=== PATIENT | male | born 1945 | race Caucasian/White ===

== ENCOUNTER 2019-03-05 06:12 | Day surgery (SDC) | payer OTHER ==
[~2019-03-05] VITALS: Ht 170.2 cm; Wt 105.7 kg
[2019-03-05 06:59] LABS: BASOPHILS 0.2 % (0-2); EOSINOPHILS 2.7 % (0-7); HEMATOCRIT 36.1 % (42.0-54.0); HEMOGLOBIN 11.9 g/dL (13.5-17.5); IMMATURE GRANULOCYTES 1.1 % (0-5); LYMPHOCYTES 20.4 % (15-50); MCH 29.2 pg (26.0-34.0); MCV 88.5 fL (80.0-100.0); MEAN PLATELET VOLUME 9.5 fL (7.4-10.4); NEUTROPHILS 63.6 % (40-80); PLATELET COUNT 284 10x3/uL (130-400); RBC 4.08 10x6/uL (4.20-6.10); WBC 11.3 10x3/uL (4.8-10.8)
[2019-03-05] MEDS ORDERED: ASPIRIN81 MG PO (07:02)
[2019-03-05] MEDS ORDERED: XOPENEX HFA15 GM INH (07:02)
[2019-03-05] MEDS ORDERED: FUROSEMIDE40 MG PO (07:03)
[2019-03-05] MEDS ORDERED: LISINOPRIL10 MG PO (07:04)
[2019-03-05] MEDS ORDERED: POTASSIUM CHLO20 MEQ PO (07:04)
[2019-03-05 07:11] VITALS: BP 133/64; Ht 170.2 cm; Wt 105.7 kg
--- NOTE | 2019-03-05 07:38 | NUR ---
PT HAS WHEEZES. PT HOOKED UP TO O2 VIA NC. RT WILL ADMINISTER BREATHING TX
[2019-03-05 07:44] LABS: APTT 33.1 SECONDS (22.8-39.4); INR 1.04 (0.85-1.17); PROTIME 13.1 SECONDS (11.6-15.0)
--- NOTE | 2019-03-05 12:11 | NUR ---
VANCMYCIN 1 GRAM IN 250CC OF NORMAL SALENE INFUSING ON ADMIT
--- NOTE | 2019-03-05 14:23 | NUR ---
DISCHARGED INSTRUCTIONS AND PACKET PROVIDED, IV DC'D WITH TIP INTACT.
--- NOTE | 2019-03-05 16:38 | OP ---
PATIENT NAME: PENG SEWELL MEDICAL RECORD: [id number] :43 LOCATION:D[facility] ED ADMISSION DATE: SURGEON: MAXX GILMAN MD DATE OF OPERATION: 03/05/2019 PREOPERATIVE DIAGNOSIS: Lung cancer in need of IV access for chemotherapy. POSTOPERATIVE DIAGNOSIS: Lung cancer in need of IV access for chemotherapy. PROCEDURES: 1. Placement of left infraclavicular PowerPort under ultrasonographic and fluoroscopic guidance. 2. Immediate surgeon interpretation of the ultrasonographic and fluoroscopic images. 3. Needle insertion into the left internal jugular vein under ultrasonographic guidance. SURGEON: Maxx Gilman MD FIRE ALARM INSPECTOR: None. BLOOD LOSS: Minimal. ANESTHESIA: General. COMPLICATIONS: None. The risks, possible complications and alternatives to the procedure were explained to the patient. He elects to proceed. The discussion specifically included, but was not limited to, bleeding requiring an emergency reoperation, infection, the possibility that port could flip, it could break, it could become infected. Static fluoroscopic images were obtained and are kept in the PACS system. Static ultrasonographic images were obtained and are kept in the chart. The surgeon interpretation of the radiographic images is dictated within the body of this operative note. OPERATIVE COURSE: The patient was conveyed to the operating room electively on 03/05/2019. General anesthesia was induced by the anesthesia staff. The left neck and left chest were sterilely prepped and draped. Under ultrasonographic guidance, I percutaneously accessed the left internal jugular vein in an antegrade fashion. This was vascular access utilizing ultrasound. Ultrasonographic images were obtained and are kept in the chart. One image is a transverse image of the left common carotid artery and left internal jugular vein, the next image is an image of the wire entering the left internal jugular vein. It is an echogenic structure that was at 12 o'clock in relation to the internal jugular vein. Through the wire, guidewire was advanced. This was visualized under fluoroscopy. The needle was removed. A transverse incision was accomplished in the anterior superior infraclavicular chest. I dissected down to the pectoralis muscle. A subcutaneous pocket was fashioned in a caudad direction. I removed some of the adipose tissue from the pocket and the patient's skin in order to allow for easier access of the port. OPERATIVE REPORT [id number] PENG SEWELL Through the port pocket, I tunneled the vascular catheter to the neck incision, which was around the wire. A dilator sheath was then advanced over the wire. The dilator and wire were removed. Through the sheath, I advanced the PowerPort catheter. It was advanced to the cavoatrial junction and this was visualized under fluoroscopy. I then shortened the catheter. It was attached to the PowerPort. The locking device was firmly engaged. The port was placed in the port pocket. It was sutured with 3-point fixation to the underlying pectoralis fascia. I irrigated the port pocket. There was no bleeding. The neck incision was closed with interrupted intracuticular 3-0 Vicryl. The port pocket was closed with interrupted intracuticular 3-0 Vicryls and then a running intracuticular 3-0 Vicryl. I accessed the port percutaneously, it accessed easily, it aspirated dark, nonpulsatile blood and also flushed easily with heparinized saline. Sterile dressings were applied. The patient was then extubated and conveyed to post-anesthesia care unit where he was in stable condition. The port can be used immediately. I will see the patient on a p.r.n. basis. I only needed to see the patient if he develops a complication related to this operative procedure. TRANSINT:[id number] Voice Confirmation ID: [id number] DOCUMENT ID: [id number] MAXX GILMAN MD at 1638 CC: GEETHA AL MD [id number] DICTATION DATE: 03/05/19 1226 GLASS LAMINATING OPERATOR: 03/05/19 1341 [facility] 03/05/19 [facility] [address] [id number]
== END 2019-03-05 14:32 ==
LOC: D.OPS 06:12
PROVIDERS: Anesthesiology; ATTEND Surgery
DX: C34.90 Malignant neoplasm of unspecified part of unspecified bronchus or lung (principal)

== ENCOUNTER 2019-09-29 07:17 | Day surgery (SDC) | payer OTHER ==
[~2019-09-29] VITALS: Ht 172.7 cm; Wt 93.0 kg
[~2019-09-29 07:17] MED LIST: ASPIRIN81 MG PO; FUROSEMIDE40 MG PO; LISINOPRIL10 MG PO; POTASSIUM CHLO20 MEQ PO; XOPENEX HFA15 GM INH
[2019-09-29 08:29] LABS: BASOPHILS 0.1 % (0-2); EOSINOPHILS 0.6 % (0-7); IMMATURE GRANULOCYTES 5.5 % (0-5); LYMPHOCYTES 12.4 % (15-50); MCH 29.2 pg (26.0-34.0); MCHC 31.4 g/dL (31.0-37.0); MCV 92.8 fL (80.0-100.0); MEAN PLATELET VOLUME 9.4 fL (7.4-10.4); MONOCYTES 9.6 % (2-11); NEUTROPHILS 71.8 % (40-80); RBC 2.09 10x6/uL (4.20-6.10); RDW 16.6 % (11.5-14.5); WBC 12.5 10x3/uL (4.8-10.8)
[2019-09-29 08:33] LABS: HEMOGLOBIN 6.1 g/dL (13.5-17.5)
[2019-09-29 08:34] LABS: HEMATOCRIT 19.4 % (42.0-54.0); PLATELET COUNT 152 10x3/uL (130-400)
[2019-09-29 08:43] LABS: APTT 23.6 SECONDS (22.8-39.4); INR 1.03 (0.85-1.17); PROTIME 13.4 SECONDS (11.6-15.0)
[2019-09-29 08:50] LABS: ANION GAP 15.3 mmol/L (8-16); CALCIUM 8.3 mg/dL (8.5-10.1); CARBON DIOXIDE 26.5 mmol/L (21.0-32.0); CREATININE - SERUM 4.2 mg/dL (0.6-1.3); POTASSIUM - SERUM 3.8 mmol/L (3.5-5.1)
--- NOTE | 2019-09-29 09:10 | NUR ---
DR LUCAS NOTIFIED AND REVIEWED PT'S BEHAVIOR AND ASSESSMENT. PT IS A LOW RISK. RESOURCES GIVEN AND HE VERBALIZES UNDERSTANDING.
[2019-09-29] MEDS ORDERED: [UNRECOGNIZED DRUG - SUPPLY] (09:21)
[2019-09-29] MEDS ORDERED: NORVASC10 MG PO (09:21)
[2019-09-29] MEDS ORDERED: PREDNISONE20 MG PO (09:22)
[2019-09-29] MEDS ORDERED: PROTONIX40 MG PO (09:23)
[2019-09-29] MEDS ORDERED: ADVAIR HFA 45/212 GM INH (09:24)
[2019-09-29] MEDS ORDERED: MYCOSTATIN500000 UNI PO (09:27)
[2019-09-29] MEDS ORDERED: ALBUTEROL2.5 MG/3 M INH (09:27)
[2019-09-29] MEDS ORDERED: ATROVENT HFA12.9 GM INH (09:28)
[2019-09-29] MEDS ORDERED: ZOFRAN4 MG PO (09:28)
[2019-09-29 09:30] VITALS: BP 125/68; Ht 172.7 cm; Wt 93.0 kg
--- NOTE | 2019-10-01 18:01 | OP ---
PATIENT NAME: PENG SEWELL MEDICAL RECORD: [id number] :43 LOCATION:[facility] ADMISSION DATE: SURGEON: MAXX GILMAN MD DATE OF OPERATION: 09/29/2019 PREOPERATIVE DIAGNOSES: End-stage renal disease with a nonfunctional tunneled dialysis catheter. POSTOPERATIVE DIAGNOSES: End-stage renal disease with nonfunctional tunneled dialysis catheter with a fibrin sheath around the dialysis catheter. PROCEDURES: 1. Tunneled catheter change out, a 19-Cameroonian HemoSplit catheter was placed. 2. Nonselective superior venacavogram. 3. Balloon lysis of fibrin sheath. 4. Immediate surgeon interpretation of the fluoroscopic images. SURGEON: Maxx Gilman MD PROVIDER RELATIONS REPRESENTATIVE: None. BLOOD LOSS: Minimal. ANESTHESIA: General. COMPLICATIONS: None. The risks, possible complications and alternatives to the procedure were explained to the patient. He elects to proceed. The discussion specifically included, but was not limited to, bleeding requiring emergency reoperation, infection, as well as possible need for an additional dialysis procedure or procedures. No radiologist was present. Static and cine fluoroscopic images were obtained and are kept in the PACS system. The surgeon interpretation of the radiographic images is dictated within the body of this operative note. OPERATIVE COURSE: The patient was conveyed to the operating room electively on 09/29/2019. General anesthesia was induced by the anesthesia staff. The right neck and right chest were sterilely prepped and draped. I bluntly dissected up along the tunneled catheter tract. I was able to pull the tunneled catheter back a few inches. I advanced the 0.035 Glidewire down through the longest tunneled catheter lumen. Through the other lumen, I pulled back it so that it was likely above the superior vena cava and perhaps in the right innominate vein. Under real time fluoroscopy, cine images were obtained, therefore, venographic images were I injected dye rapidly down through this proximal lumen. On one image, there appeared to be a fibrin sheath. I advanced an 0.035 Glidewire down through the secondary lumen. The tunneled catheter was then removed. Over one of the wires, I advanced a 12 mm x 40 mm angioplasty balloon. I advanced it into the superior vena cava. Very rapidly, I advanced and withdrew OPERATIVE REPORT [id number] PENG SEWELL it many times in order to lyse the fibrin sheath. There was no drop in the patient's O2 saturation during this procedure. I then deflated the angioplasty balloon and removed it. We then loaded a 19-Cameroonian HemoSplit catheter on one of the Glidewires. This was then advanced and the shortest lumen was in the right innominate vein. Another venogram was performed and this revealed no persistence of the fibrin sheath. I then advanced the tunneled catheter all the way burying the cuff in the subcutaneous tissues. The Glidewires were removed. I flushed both lumens of the HemoSplit catheter with the appropriate amount of heparinized saline. I then topped off both of these with the appropriate amount of concentrated heparin. I then sutured the flange to the underlying skin with 2-0 Prolene sutures. A sterile dressing was then applied. The patient was then extubated and conveyed to post-anesthesia care unit where he was in stable condition. There is no need for the patient to follow up with me in the office unless he develops a complication related to this operative procedure. TRANSINT:[id number] Voice Confirmation ID: [id number] DOCUMENT ID: [id number] MAXX GILMAN MD at 1801 CC: [id number] DICTATION DATE: 09/29/19 1523 GLASS TOUGHENING OPERATOR: 09/29/19 1619 [facility] 09/29/19 [id number] [place] [address]
== END 2019-09-29 14:30 | disposition home or self-care (01) ==
LOC: D.OPS 07:17
PROVIDERS: Anesthesiology; ATTEND Surgery
DX: N18.6 End stage renal disease (principal); T82.49XA Other complication of vascular dialysis catheter, initial encounter; Z99.2 Dependence on renal dialysis; K21.9 Gastro-esophageal reflux disease without esophagitis; I25.2 Old myocardial infarction